=== PATIENT | male | born 1975 | race Two or more races ===

== ENCOUNTER → 2019-09-08 | Outpatient (CLI) | payer OTHER ==
--- NOTE | 2019-09-08 13:52 | RAD ---
CT of the abdomen and pelvis without contrast. 09/08/2019 12:30 PM Indication: Reason: RENAL STONES, DYSURIA, EPIDIMYTIS / Spl. Instructions: / History: Comparison Study: None. Technique: Multidetector CT imaging of the abdomen pelvis is obtained without administration of contrast. Findings: The visualized bilateral lung bases are clear. The liver, spleen, bilateral adrenal glands, gallbladder, and pancreas have an unremarkable noncontrast enhanced appearance. The bilateral kidneys are grossly normal in appearance. There is no evidence of nephrolithiasis or obstructive uropathy. The ureters are normal in course and caliber. The bladder is grossly unremarkable. There is no significant free fluid or free air in the abdomen or pelvis. There is no evidence of bowel obstruction or significant inflamatory change. The appendix is grossly unremarkable.. Prostate appears be mildly enlarged.. There is a prostatic calcification noted. Mild dextrocurvature of the thoracolumbar spine is seen. No acute osseous changes are identified. Impression: 1. No evidence of acute intra-abdominal abnormality 2. No evidence of nephrolithiasis or acute obstructive uropathy. 3. Probable mild prostamegaly CT DOSING PQRS STATEMENT: One or more of the following individualized dose reduction techniques were utilized for this examination: 1. Automated exposure control 2. Adjustment of the mA and/or kV according to patient size 3. Use of iterative reconstruction technique Electronically signed by: Jt Menard MD (09/08/2019 1:49 PM) [id number]
== END | disposition home or self-care (01) ==
LOC: CT 11:43
PROVIDERS: ATTEND Family Medicine
DX: N40.1 Benign prostatic hyperplasia with lower urinary tract symptoms (principal); N45.1 Epididymitis; R30.0 Dysuria; N20.0 Calculus of kidney; M43.8X5 Other specified deforming dorsopathies, thoracolumbar region
CPT/HCPCS: 74176